=== PATIENT | female | born 1950 | race Caucasian/White ===

== ENCOUNTER → 2023-10-23 10:59 | Outpatient (REF) | payer OTHER, SELFPAY | LOC: DHCBC/DCA 10:59 | PROVIDERS: ATTENDING PHYSICIAN Internal Medicine Cardiovascular Disease; FAMILY PHYSICIAN Physician Assistant Medical | DX: R07.2 Precordial pain (principal); I10 Essential (primary) hypertension; E78.5 Hyperlipidemia, unspecified | CPT/HCPCS: 78452; 93017; A9500; J2785 ==

== ENCOUNTER → 2023-12-31 13:11 | Outpatient (REF) | payer OTHER, SELFPAY | LOC: WDC 13:11 | PROVIDERS: ATTENDING PHYSICIAN Physician Assistant Medical | DX: Z13.820 Encounter for screening for osteoporosis (principal); Z12.31 Encounter for screening mammogram for malignant neoplasm of breast | CPT/HCPCS: 77063; 77067 ==

== ENCOUNTER 2024-07-11 09:02 | Emergency (ER) | payer OTHER, MEDICARE, SELFPAY ==
[2024-07-11] VITALS (7 sets, daily range): BP systolic 116–135; BP diastolic 63–83; BMI 26.4
--- NOTE | 2024-07-11 09:35 | ED.GENMED ---
History of Present Illness
<STACIA Holliday Last Filed: 07/12/24 07:56>
General
Chief Complaint: Abdominal Pain
Source: patient
Exam Limitations: none
Time Seen by Provider: 07/11/24 09:13
Nursing documentation reviewed up to this point in time: agreed with
History of Present Illness
History of Present Illness:
73 y/o F with h/o HTN, hld
says her urine was a little cloudy but then last night she started with R sided flank/abd pain that radiates to back with nausea
pt says her pain has been waxing and waning, coming in waves;
she tried tylenol 975 mg at 6 am
no fever/chills, vomiting, diarrhea, constipation
never had a kidney stone before.
she has no chest pain, shortness of breath, leg weakness, numbness, diarrhea, ocnstipation, rash
no recent trauma
no h/o aortic disease
Past History
<STACIA Holliday Last Filed: 07/12/24 07:56>
Past History
ED Past Medical History: HTN and Hypercholesterolemia
ED Past Surgical History:
Social History
Tobacco: Non-smoker
Alcohol: None
Drug: None
Review of Systems
<STACIA Holliday Last Filed: 07/12/24 07:56>
Review of Systems
Allergies reviewed?: Yes
All Other Systems: Not applicable
Phy Exam
<STACIA Holliday Last Filed: 07/12/24 07:56>
Physical Exam
Physical Exam:
GENERAL: Alert, uncomfortable, moving around in the stretcher
Neck: supple
CARDIAC: Regular rate and rhythm .no edema,
LUNGS: Clear breath sounds bilaterally, no acute respiratory distress, no wheezes/rales/rhonchi
ABDOMEN: Soft, normal bowel sounds, nondistended, no abdominal tenderness, no flank tendenress, no cva tenderness; no rash no guarding, no rebound, neg tan's
hip: right mild discomfort with movement of legs; but able to fully flex
NEUROLOGICAL: Alert and oriented, no focal neuro deficits
SKIN: Warm and dry, skin intact.
PSYCH: Normal and appropriate interaction.
Course
<Dorothea Bullock PA-C - Last Filed: 07/12/24 07:56>
Orders/Labs/Results
Orders:
Orders
07/11/24 09:27
HYDROmorphone [Dilaudid] 0.5 mg IV NOW STA
Ondansetron Injectable [Zofran] 4 mg IV NOW STA
07/11/24 09:33
CT Abd/pel Without Iv Or Oral Urgent
Comment:
Reason For Exam: r flank pain, concern for kidney stone
07/11/24 09:38
Complete Blood Count/With Diff Urgent
Comprehensive Metabolic Panel Urgent
Lipase Urgent
Urinalysis Reflex To Culture Urgent
Date Specimen was Collected: 07/11/24
Time Specimen was Collected: 09:33
Urine Microscopic Reflex Cult Urgent
Urine Culture Urgent
BARBARA Source: U
Specimen Description:
Date Specimen was Collected: 07/11/24
Time Specimen was Collected: 09:33
07/11/24 09:43
HYDROmorphone [Dilaudid] 0.5 mg .ROUTE .STK-MED ONE
07/11/24 10:51
HYDROmorphone [Dilaudid] 0.5 mg IV NOW STA
Ketorolac [Toradol] 15 mg IV NOW STA
07/11/24 10:52
HYDROmorphone [Dilaudid] 0.5 mg .ROUTE .STK-MED ONE
07/11/24 11:31
CT Chest/abd/pelvis Angio W/wo Urgent
Comment:
Reason For Exam: severe R sided abd pain; no stone; eval aorta
07/11/24 13:01
Ketorolac [Toradol] 15 mg IV NOW STA
07/11/24 13:37
Cefdinir [Omnicef] 300 mg PO NOW STA
07/11/24 14:27
Ondansetron Injectable [Zofran] 4 mg IV NOW STA
Oxycodone/Acetaminophen [Percocet 5/325] 1 tablet PO NOW STA
Abnormal Lab Results
07/11/24
09:38
Abs Immat Gran (auto) 0.1 H 10^3/uL
(0-0.05)
Immature Gran % 0.9 H %
(0-0.5)
Lymphocytes % 17.8 L %
(20.5-51.1)
Potassium 3.4 L mmol/L
(3.5-5.1)
Carbon Dioxide 31 H mmol/L
(22-30)
Glucose 147 H mg/dl
(70-99)
Total Bilirubin 1.8 H mg/dl
(0.2-1.3)
Urine Ketones Trace A
(Negative)
Urine Bilirubin 1+ A
(Negative)
Leukocyte Esterase Rfl 1+ A
(Negative)
Urine RBC 3-6 A /HPF
(0-2)
Urine WBC (Reflex) 40-50 A /HPF
(0-5)
Urine Bacteria (Reflex) Moderate A
(Negative)
07/11/24 09:38
07/11/24 09:38
Vital Signs
Initial and Last Documented VS:
Initial Vital Signs
Pulse Resp BP Pulse Ox
63 18 128/83 98
07/11/24 09:07 07/11/24 09:07 07/11/24 09:07 07/11/24 09:07
Last Documented Vital Signs
Temp Pulse Resp BP Pulse Ox
98.5 F 61 16 125/70 96
07/11/24 10:50 07/11/24 15:00 07/11/24 15:00 07/11/24 15:00 07/11/24 15:00
<Juan uBck, DO - Last Filed: 07/12/24 13:03>
Orders/Labs/Results
Orders:
Orders
07/11/24 09:27
HYDROmorphone [Dilaudid] 0.5 mg IV NOW STA
Ondansetron Injectable [Zofran] 4 mg IV NOW STA
07/11/24 09:33
CT Abd/pel Without Iv Or Oral Urgent
Comment:
Reason For Exam: r flank pain, concern for kidney stone
07/11/24 09:38
Complete Blood Count/With Diff Urgent
Comprehensive Metabolic Panel Urgent
Lipase Urgent
Urinalysis Reflex To Culture Urgent
Date Specimen was Collected: 07/11/24
Time Specimen was Collected: 09:33
Urine Microscopic Reflex Cult Urgent
Urine Culture Urgent
BARBARA Source: U
Specimen Description:
Date Specimen was Collected: 07/11/24
Time Specimen was Collected: 09:33
07/11/24 09:43
HYDROmorphone [Dilaudid] 0.5 mg .ROUTE .STK-MED ONE
07/11/24 10:51
HYDROmorphone [Dilaudid] 0.5 mg IV NOW STA
Ketorolac [Toradol] 15 mg IV NOW STA
07/11/24 10:52
HYDROmorphone [Dilaudid] 0.5 mg .ROUTE .STK-MED ONE
07/11/24 11:31
CT Chest/abd/pelvis Angio W/wo Urgent
Comment:
Reason For Exam: severe R sided abd pain; no stone; eval aorta
07/11/24 13:01
Ketorolac [Toradol] 15 mg IV NOW STA
07/11/24 13:37
Cefdinir [Omnicef] 300 mg PO NOW STA
07/11/24 14:27
Ondansetron Injectable [Zofran] 4 mg IV NOW STA
Oxycodone/Acetaminophen [Percocet 5/325] 1 tablet PO NOW STA
Abnormal Lab Results
07/11/24
09:38
Abs Immat Gran (auto) 0.1 H 10^3/uL
(0-0.05)
Immature Gran % 0.9 H %
(0-0.5)
Lymphocytes % 17.8 L %
(20.5-51.1)
Potassium 3.4 L mmol/L
(3.5-5.1)
Carbon Dioxide 31 H mmol/L
(22-30)
Glucose 147 H mg/dl
(70-99)
Total Bilirubin 1.8 H mg/dl
(0.2-1.3)
Urine Ketones Trace A
(Negative)
Urine Bilirubin 1+ A
(Negative)
Leukocyte Esterase Rfl 1+ A
(Negative)
Urine RBC 3-6 A /HPF
(0-2)
Urine WBC (Reflex) 40-50 A /HPF
(0-5)
Urine Bacteria (Reflex) Moderate A
(Negative)
07/11/24 09:38
07/11/24 09:38
Vital Signs
Initial and Last Documented VS:
Initial Vital Signs
Pulse Resp BP Pulse Ox
63 18 128/83 98
07/11/24 09:07 07/11/24 09:07 07/11/24 09:07 07/11/24 09:07
Last Documented Vital Signs
Temp Pulse Resp BP Pulse Ox
98.5 F 61 16 125/70 96
07/11/24 10:50 07/11/24 15:00 07/11/24 15:00 07/11/24 15:00 07/11/24 15:00
<Dorothea Bullock PA-C - Last Filed: 07/12/24 07:56>
MDM/Problems Addressed
Differential Diagnosis Includes:
Kidney stone, appendicitis, diverticulitis, less likely dissection
MDM/Problems Addressed:
73-year-old female with a history of hypertension presents for right sided lower abdominal pain radiating to her back since early this morning. Patient says she has had a little bit of cloudiness to her urine a few days ago but no dysuria or
frequency. She started having nausea and this right lower abdominal pain last night and could not get comfortable. She did not think she had a fever but took some Tylenol for pain at 6 AM without relief. Patient says she cannot get comfortable.
She is not having any leg weakness, chest pain, shortness of breath, fever or chills.
On exam she is not tender but very uncomfortable
seemed to be fairly consistent with kidney stone
however, ct ap was negative
pt contineud to have pain slightly out of proportion to exam; she does have some pain with moement but seems to be moving around and can't get comfortable
urine is contaminated but with her cloudiness, i suspect infection
d/w dr. latham, pt required multiple doses dilaudid and thus we decided to send pt back to r/o dissection
her CTA was neg
she was made aware of pulm nodules, emphysem and other incidentals
1310
she is much more comfortable now but seems to have pain more with hip movement
perhaps MSK
will give toradol
anticipiate d/c
1430 - pt reassessed appears uncomfortable; having right sided back/hip pain and wrapping around to right abdomen/hip
worse with movement
??msk vs early shingles
at this point, it is unclear what the cause is
plan is to try oral dose of pain meds; if pt is not more comfortable, will obs for intractable pain
1530 - pt feels much better pain 09/12
will give short course pain meds; cover with abx
<Dorothea Bullock PA-C - Last Filed: 07/12/24 07:56>
*Critical Care Note
Total Time (30-74mins, 75-104mins- exclusive of procedures): Not Applicable
ED Attending Note
<Dorothea Bullock PA-C - Last Filed: 07/12/24 07:56>
-
Portions of this chart may have been created with voice recognition software.� Occasional wrong word or��sound alike� substitutions may have occurred due to the inherent limitations of voice recognition software.
<Juan Buck DO - Last Filed: 07/12/24 13:03>
ED Attending Note
Patient seen and examined by attending physician: Yes
ED Attending Note:
I have reviewed and agree with history and treatment plan by Dorothea Bullock PA-C. Eye exam revealed 73-year-old female with mild right CVA tenderness, no distress. Suspect viral cause versus musculoskeletal. No signs of aortic dissection or
pyelonephritis. Stable for discharge. Treat UTI.
Discharge Plan
Departure
Patient Disposition: Home (Routine Discharge)
Date of Disposition: 07/11/24
Time of Disposition: 15:27
Patient with high blood pressure during this ER visit?: No
Condition: Fair
Covid-19: Not Applicable
Discharge Problem:
UTI (urinary tract infection), Back pain
Instructions: Urinary tract infection - Discharge instructions, Back Pain, Abdominal Pain
Prescriptions:
New
cefdinir 300 mg capsule
300 mg PO BID Qty: 14 0RF
ondansetron 4 mg tablet,disintegrating
4 mg PO Q8H PRN (Reason: nausea and vomiting) 1 Days Qty: 3 0RF
oxycodone-acetaminophen [Percocet] 5-325 mg tablet
1 tab PO Q6HPRN PRN (Reason: pain) Qty: 4 0RF
Referrals:
Ana Tan PA-C [Family Provider] - Follow up in 2-3 days
Activity Restrictions/Additional Instructions:
YOUR CAT SCANS SHOWED NO SIGNS OF SERIOUS CAUSE OF YOUR PAIN
YOU DO HAVE SOME INCIDENTAL FINDINGS OF PULMONARY NODULES AND EMPHYSEMA
YOUR APPENDIX LOOKS NORMAL, THERE IS NO SIGN OF A KIDNEY STONE
YOU DO HAVE SOME BACTERIA IN YOUR URINE
TAKE CEFDINIR TWICE A DAY FOR 7 DAYS
DRINK FLUIDS
TYLENOL/MOTRIN FOR PAIN NEEDED
FOLLOW UP WITH YOUR FAMILY DOCTOR THIS WEEK
RETURN FOR: SEVERE/WORSENING PAIN, FEVER, VOMITING, SEVERE PAIN, OR ANY CONCERNS.
YOU CAN TRY PERCOCET EVERY 8 HOURS ASNEEDED FOR SEVERE PAIN (THIS IS A NARCOTIC)
ZOFRAN NEEDED EVERY 8HOURS FOR NAUSEA/VOMITING.
Interventions
Interventions:
*Risk Screen - Suicide Last Done: 07/11/24 09:07
*General Assessment Last Done: 07/11/24 09:07
*Neglect/Abuse Screening Last Done: 07/11/24 09:52
ED- Fall Risk Assessment Last Done: 07/11/24 09:52
*ED COVID-19 Vaccine History Last Done: 07/11/24 09:07
*Nursing Disposition Last Done: 07/11/24 15:44
QY-Emthfb-Jhogpsycjd Assessment Last Done: 07/11/24 09:52
Discharge Date and Time
Discharge Date/Time: 07/11/24 15:45
Print Language: MACEDONIAN
[2024-07-11] MEDS: DILAUDID 0.5 MG IV ×2 (09:38→10:50)
[2024-07-11] MEDS: ZOFRAN 4 MG IV ×2 (09:38→14:40)
[2024-07-11 09:53] LABS: Urine Albumin Trace (Neg - Trace); Urine Bilirubin 1+ (Negative); Urine Character Clear (Clear); Urine Color Yellow; Urine Glucose Negative (Negative); Urine Ketone Trace (Negative); Urine Leukocyte 1+ (Negative); Urine Nitrite Negative (Negative); Urine Occult Blood Negative (Negative); Urine Urobilinogen Negative (Neg - 1+)
[2024-07-11 09:55] LABS: % Basophils 0.5 % (0-2); % Eosinophils 0.9 % (0-6); % Immature Granulocytes 0.9 % (0-0.5); % Lymphocytes 17.8 % (20.5-51.1); % Neutrophils 74.9 % (42.2-75.2); Absolute Eosinophils 0.1 10^3/uL (0-0.7); Absolute Immature Granulocytes 0.1 10^3/uL (0-0.05); Absolute Lymphocytes 1.4 10^3/uL (1.2-3.4); Absolute Monocytes 0.4 10^3/uL (0.1-0.6); Absolute Neutrophils 5.7 10^3/uL (1.4-6.5); Hematocrit 42.9 % (37.0-47.0); Hemoglobin 14.5 g/dL (12.0-16.0); Mean Corp Hgb Conc. 33.8 g/dL (33.0-37.0); Mean Corpuscular Hgb 28.9 pg (27.0-31.0); Mean Corpuscular Volume 85.5 fL (81.0-99.0); Mean Platelet Volume 10.3 fL (7.4-10.4); Nucleated Red Blood Cells % 0 %; Platelet Count 228 10^3/uL (130-400); Red Blood Cell Count 5.02 10^6/uL (4.20-5.40); Red Cell Dist. Width 13.2 % (11.5-14.5); White Blood Cell Count 7.6 10^3/uL (4.8-10.8)
[2024-07-11 10:03] LABS: ALT (SGPT) 25 U/L (0-35); AST (SGOT) 29 U/L (14-36); Albumin 4.8 g/dl (3.5-5.0); Alkaline Phosphatase 92 U/L (38-126); Blood Urea Nitrogen 17 mg/dl (7-17); Calcium 9.4 mg/dl (8.4-10.2); Carbon Dioxide 31 mmol/L (22-30); Chloride 98 mmol/L (98-107); Estimated Creatinine Clearance 63 ml/min; Glucose 147 mg/dl (70-99); Lipase 97 U/L (23-300); Potassium 3.4 mmol/L (3.5-5.1); Sodium 141 mmol/L (135-145); Total Bilirubin 1.8 mg/dl (0.2-1.3); Total Protein 7.9 g/dl (6.3-8.2); eGFR > 60.00
[2024-07-11 10:33] LABS: Urine Squamous Cell 16-20 /LPF (Few)
[2024-07-11 10:34] LABS: Urine Mucus Moderate
[2024-07-11 10:36] LABS: Urine White Cell 40-50 /HPF (0-5)
[2024-07-11 10:37] LABS: Urine Bacteria Moderate (Negative)
--- NOTE | 2024-07-11 12:51 | EDRN ---
Pt states pain is intermittent at 7/10 not constant.
[2024-07-11] MEDS: TORADOL 15 MG IV (13:31)
--- NOTE | 2024-07-11 13:35 | EDRN ---
called pharmacy to send omnicef at this time. Pt was just OOB to BR. Dr. Buck in room w/ pt.
--- NOTE | 2024-07-11 14:23 | EDRN ---
Shayan OAKLEY in room w/ pt at this time.
[2024-07-11] MEDS: OMNICEF 300 MG PO (14:34)
[2024-07-11] MEDS: PERCOCET 5/325 1 TABLET PO (14:39)
--- NOTE | 2024-07-11 15:25 | EDRN ---
Shayan OAKLEY in room w/ pt at [facility] time.
== END 2024-07-11 15:45 | disposition home or self-care (01) ==
LOC: EMR 09:02
PROVIDERS: Physician Assistant; EMERGENCY PHYSICIAN Emergency Medicine; FAMILY PHYSICIAN Physician Assistant Medical
DX: N39.0 Urinary tract infection, site not specified (principal); M54.9 Dorsalgia, unspecified; E78.00 Pure hypercholesterolemia, unspecified; I10 Essential (primary) hypertension; R91.8 Other nonspecific abnormal finding of lung field
CPT/HCPCS: 96374; 96375; 96376; 99284; 71275; 74174; 74176; 80053; 81003; 81015; 83690; 85025; 87086; Q9967

== ENCOUNTER 2024-11-22 05:23 | Emergency (ER) | payer OTHER, SELFPAY ==
[2024-11-22] VITALS (9 sets, daily range): BP systolic 92–166; BP diastolic 67–94; BMI 27.9
--- NOTE | 2024-11-22 06:05 | ED.GENMED ---
History of Present Illness
General
Chief Complaint: Heart Rate Problem
Source: patient
Exam Limitations: none
Time Seen by Provider: 11/22/24 05:57
History of Present Illness
History of Present Illness:
74yoF with history of hypertension and hyperlipidemia presenting for evaluation of palpitations. Patient woke up from sleep around 3:30 AM this morning. She reports feeling short of breath and a fluttering in her chest. She decided to check her
blood pressure and her heart rate was elevated at 158. She went downstairs to watch some TV thinking her symptoms would subside. Her heart rate was still elevated on recheck which prompted her to ED. She reports lightheadedness but denies any
syncope. Patient is currently feeling improved although continues to have a mild chest pressure. She states it feels like she just smoked a pack of cigarettes. 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
shoveling snow. She is not currently on anticoagulation. She does admit to doing a lot of yard work yesterday and is unsure if this is related. Her current medications include HCTZ, metoprolol, and a statin. She had a nuclear stress test in
October 2023 which was negative for ischemia. EF was >70% at that time.
Past History
Past History
ED Past Medical History: HTN and Hypercholesterolemia
ED Past Surgical History:
Social History
Tobacco: Non-smoker
Alcohol: None
Drug: None
Phy Exam
General Physical Exam
General Presentation: well appearing and no apparent distress
General age: appears stated age
General Skin: warm and dry
General Habitus: normal
General Mental: alert
ENT Exam
ENT Exam: normocephalic
Cardiovascular Exam
Cardiovascular Exam: regular rate/rhythm, no edema and no murmur
Pulmonary Exam
Pulmonary Exam: lungs clear, no respiratory distress, no rales, no crackles, no rhonchi and no wheezing
Neurological Exam
Neurological Exam: alert
Serena Coma Scale
Eye Opening: Spontaneous
Verbal Response: Oriented
Motor Response: Obeys Commands
GCS Total Score: 15
Skin Exam
Skin Exam: normal color and warm/dry
Psychiatric Exam
Psychiatric Exam: normal mood/affect
Scores
[id number] Score for Afib Stroke Risk
Age in Years (65=0, 65-74=1, >/=75=2): > or = 75
Sex (Female=+1): Female
Congestive Heart Failure History (Yes=+1): No
Hypertension History (Yes=+1): Yes
Stroke/TIA/Thromboembolism History (Yes=+2): No
Vascular Disease History (Yes=+1): No
Diabetes Mellitus (Yes=+1): No
Score: 4
Anticoagulation Recommendations: Recommend anticoagulation (as validated in nonvalvular fib)
Course
Orders/Labs/Results
Orders:
Orders
11/22/24 05:28
ECG [Electrocardiogram (*1)] Urgent
Reason for Study: Tachycardia
11/22/24 05:29
EKG- Treatment ONCE
11/22/24 05:56
Complete Blood Count/With Diff Urgent
Comprehensive Metabolic Panel Urgent
Magnesium Urgent
NT-proBNP Urgent
TSH Reflex To Free T4 Urgent
Troponin I Urgent
11/22/24 06:04
Electrocardiogram (*1) Urgent
Reason for Study: Palpitations
Cardiac Monitoring- Treatment ONCE
EKG- Treatment ONCE
CR Chest - 2 Views Urgent
Comment:
Reason For Exam: SOB
11/22/24 07:04
0.9% Sodium Chloride 500 ml [Nss] 500 ml IV BOLUS
11/22/24 07:12
Apixaban [Eliquis] 5 mg PO NOW STA
Abnormal Lab Results
11/22/24
05:56
MCHC 32.8 L g/dL
(33.0-37.0)
Absolute Monos (auto) 0.7 H 10^3/uL
(0.1-0.6)
Immature Gran % 0.6 H %
(0-0.5)
Monocytes % 9.8 H %
(1.7-9.3)
Glucose 137 H mg/dl
(70-99)
11/22/24 05:56
11/22/24 05:56
Vital Signs
Initial and Last Documented VS:
Initial Vital Signs
Temp Pulse Resp BP Pulse Ox
97.8 F 168 24 166/94 97
11/22/24 05:26 11/22/24 05:26 11/22/24 05:26 11/22/24 05:26 11/22/24 05:26
Last Documented Vital Signs
Temp Pulse Resp BP Pulse Ox
97.8 F 72 13 103/67 99
11/22/24 05:26 11/22/24 09:00 11/22/24 09:00 11/22/24 08:24 11/22/24 09:00
MDM/Problems Addressed
Differential Diagnosis Includes:
74yoF here with SOB and palpitations that woke her up from sleep this morning. Remote history of aflutter. HR 168 on arrival and triage EKG shows afib with RVR with rate related ST changes. On initial exam, she is in normal sinus rhythm. She is
currently feeling better but does c/o a chest pressure. Differential diagnosis includes but is not limited to: arrhythmia, electrolyte abnormality, thyroid dysfunction
Initial ED plan: Cardiac labs and TSH already sent by nursing staff. Will add magnesium, CXR, and repeat EKG.
*EKG
Interpreted by ED Provider?: Yes
EKG Intrepretation Date: 11/22/24
Heart Rate: 162
Rate: tachycardiac
Rhythm: a-fib
Whipple: normal axis
Interval: normal interval
QRS Pattern: normal QRS
Ischemia: non-specific ST changes
*Critical Care Note
Total Time (30-74mins, 75-104mins- exclusive of procedures): Not Applicable
Update Note
Update Note:
Labs overall unremarkable including normal electrolytes and TSH. Troponin within normal limits. Chest x-ray is clear. Patient observed for an additional 2+ hours and she remains in normal sinus rhythm. Patient is asymptomatic on reassessment.
No indication for hospitalization. [id number] score is 4. Patient was initiated on Eliquis and coupon provided. She was advised to call her zipper setter lockstitch today to schedule a close follow-up appointment. Strict ED return precautions reviewed.
Patient in agreement with plan and was discharged in stable condition.
ED Attending Note
-
Portions of this chart may have been created with voice recognition software.� Occasional wrong word or��sound alike� substitutions may have occurred due to the inherent limitations of voice recognition software.
Discharge Plan
Departure
Patient Disposition: Home (Routine Discharge)
Date of Disposition: 11/22/24
Time of Disposition: 08:17
Patient with high blood pressure during this ER visit?: No
Discharge Problem:
Atrial fibrillation with RVR
Instructions: Atrial Fibrillation (DC), Apixaban
Prescriptions:
New
Eliquis 5 mg tablet
5 mg PO BID Qty: 60 0RF
No Action
ondansetron 4 mg tablet,disintegrating
4 mg PO Q8H PRN (Reason: nausea and vomiting) 1 Days Qty: 3 0RF
Referrals:
Ana Tan PA-C [Family Provider] -
Activity Restrictions/Additional Instructions:
Take Eliquis as prescribed. Continue taking metoprolol.
Please call today to schedule a follow-up with your zipper setter lockstitch. Return to the ER with any new or worsening symptoms.
Interventions
Interventions:
*Risk Screen - Suicide Last Done: 11/22/24 05:48
*General Assessment Last Done: 11/22/24 05:48
*Neglect/Abuse Screening Last Done: 11/22/24 05:48
*ED- Fall Risk Assessment Last Done: 11/22/24 05:48
*ED COVID-19 Vaccine History Last Done: 11/22/24 05:48
*Nursing Disposition Last Done: 11/22/24 09:15
ED- Cardiac Assessment Last Done: 11/22/24 07:20
ED- Pulmonary Assessment Last Done: 11/22/24 07:20
Discharge Date and Time
Discharge Date/Time: 11/22/24 09:17
Print Language: UPPER SORBIAN
[2024-11-22 06:11] LABS: % Basophils 0.9 % (0-2); % Immature Granulocytes 0.6 % (0-0.5); % Lymphocytes 33.8 % (20.5-51.1); % Monocytes 9.8 % (1.7-9.3); % Neutrophils 51.9 % (42.2-75.2); Absolute Basophils 0.1 10^3/uL (0-0.2); Absolute Eosinophils 0.2 10^3/uL (0-0.7); Absolute Lymphocytes 2.2 10^3/uL (1.2-3.4); Absolute Monocytes 0.7 10^3/uL (0.1-0.6); Absolute Neutrophils 3.4 10^3/uL (1.4-6.5); Hematocrit 43.9 % (37.0-47.0); Hemoglobin 14.4 g/dL (12.0-16.0); Mean Corp Hgb Conc. 32.8 g/dL (33.0-37.0); Mean Corpuscular Volume 85.4 fL (81.0-99.0); Nucleated Red Blood Cells % 0 %; Platelet Count 241 10^3/uL (130-400); Red Blood Cell Count 5.14 10^6/uL (4.20-5.40); Red Cell Dist. Width 13.2 % (11.5-14.5); White Blood Cell Count 6.6 10^3/uL (4.8-10.8)
[2024-11-22 06:20] LABS: ALT (SGPT) 24 U/L (0-35); AST (SGOT) 31 U/L (14-36); Albumin 4.3 g/dl (3.5-5.0); Alkaline Phosphatase 110 U/L (38-126); Blood Urea Nitrogen 16 mg/dl (7-17); Carbon Dioxide 28 mmol/L (22-30); Chloride 103 mmol/L (98-107); Estimated Creatinine Clearance 71 ml/min; Glucose 137 mg/dl (70-99); Magnesium 1.8 mg/dl (1.6-2.3); Sodium 144 mmol/L (135-145); Total Protein 7.7 g/dl (6.3-8.2); eGFR > 60.00
[2024-11-22 06:29] LABS: NT-proBNP 458 pg/ml; Troponin I 0.033 ng/ml
[2024-11-22 06:51] LABS: TSH Reflex To Free T4 3.14 uIU/ml (0.47-4.68)
[2024-11-22] MEDS: NSS 500 IV (07:27)
[2024-11-22] MEDS: ELIQUIS 5 MG PO (07:27)
== END 2024-11-22 09:17 | disposition home or self-care (01) ==
LOC: EMR 05:23
PROVIDERS: Emergency Medicine; EMERGENCY PHYSICIAN Emergency Medicine; FAMILY PHYSICIAN Physician Assistant Medical
DX: I48.91 Unspecified atrial fibrillation (principal); I10 Essential (primary) hypertension; E78.00 Pure hypercholesterolemia, unspecified; Z79.899 Other long term (current) drug therapy
CPT/HCPCS: 99285; 96360; 71046; 80053; 83735; 83880; 84443; 84484; 85025; 93005

== ENCOUNTER → 2024-12-08 13:49 | Outpatient (REF) | payer OTHER, SELFPAY | LOC: RCS 13:49 | PROVIDERS: ATTENDING PHYSICIAN Nurse Practitioner Gerontology; FAMILY PHYSICIAN Physician Assistant Medical | DX: I48.0 Paroxysmal atrial fibrillation (principal) | CPT/HCPCS: 93306 ==

== ENCOUNTER → 2025-02-01 11:34 | Outpatient (REF) | payer OTHER, SELFPAY | LOC: WDC 11:34 | PROVIDERS: ATTENDING PHYSICIAN Physician Assistant Medical | DX: Z12.31 Encounter for screening mammogram for malignant neoplasm of breast (principal) | CPT/HCPCS: 77063; 77067 ==

== ENCOUNTER 2025-05-09 18:51 | Emergency (ER) | payer OTHER, SELFPAY ==
[2025-05-09 18:58] VITALS: BP 124/90
[2025-05-09 19:13] VITALS: BP 133/119
[2025-05-09 19:14] VITALS: BMI 27.4
[2025-05-09 19:19] LABS: Hematocrit 43.5 % (37.0-47.0); Hemoglobin 14.6 g/dL (12.0-16.0); Mean Corp Hgb Conc. 33.6 g/dL (33.0-37.0); Mean Corpuscular Volume 84.0 fL (81.0-99.0); Nucleated Red Blood Cells % 0 %; Platelet Count 231 10^3/uL (130-400); Red Cell Dist. Width 13.0 % (11.5-14.5)
--- NOTE | 2025-05-09 19:19 | ED.GENMED ---
History of Present Illness
General
Chief Complaint: Heart Rate Problem
Time Seen by Provider: 05/09/25 19:03
History of Present Illness
History of Present Illness:
Patient presents to the emergency department with palpitations. She has a history of paroxysmal atrial fibrillation and is on Eliquis for this. She reports tonight at 5 PM she felt himself going to atrial fibrillation. This is associated with
anxiety and palpitations. She feels some chest pressure. Denies leg swelling. Denies shortness of breath.
Past History
Past History
ED Past Medical History: HTN and Hypercholesterolemia
ED Past Surgical History:
Social History
Tobacco: Non-smoker
Alcohol: None
Drug: None
Phy Exam
Physical Exam
Physical Exam:
GENERAL APPEARANCE: NAD, well developed/ well nourished
EYES lids/conjunctiva normal
EARS/NOSE/THROAT Mucous membranes moist, uvula midline without oral pharyngeal erythema, exudate or swelling
HEAD/NECK normocephalic atraumatic, neck is supple.
RESPIRATORY respiratory effort normal, speaks in full sentences, no accessory muscle use. Lungs clear to auscultation without rhonchi, wheezes, rales
CARDIAC irregularly irregular tachycardia
ABDOMINAL Soft, ND/NT.
MUSCLES/EXTREMITIES No abnormal range of motion, no swelling.
SKIN Warm, pink and dry. No rashes
NEUROLOGICAL Speech is clear and appropriate. Normal level of consciousness. 5/5 strength in all extremities.
PSYCH Normal mood and affect. Judgement/competence is appropriate
Course
Orders/Labs/Results
Orders:
Orders
05/09/25 18:52
ECG [Electrocardiogram (*1)] Urgent
Reason for Study: Tachycardia
EKG- Treatment ONCE
05/09/25 19:06
CR Chest - 2 Views Urgent
Comment:
Reason For Exam: sob
05/09/25 19:11
Complete Blood Count/With Diff Urgent
Comprehensive Metabolic Panel Urgent
Magnesium Urgent
PTT Urgent
Prothrombin Time Urgent
Troponin I Urgent
05/09/25 19:21
0.9% Sodium Chloride 1000 ml [Nss] 1,000 ml IV BOLUS
05/09/25 19:42
Etomidate [Amidate 20 mg] 10 mg IV NOW STA
Fentanyl Citrate/Pf [Sublimaze] 50 mcg IV NOW STA
Potassium Chloride [KCl] 40 meq PO NOW STA
05/09/25 20:00
Electrocardiogram (*1) Urgent
Reason for Study: Hypertension, Benign
EKG- Treatment ONCE
Abnormal Lab Results
05/09/25
19:11
Abs Immat Gran (auto) 0.1 H 10^3/uL
(0-0.05)
Absolute Monos (auto) 0.7 H 10^3/uL
(0.1-0.6)
Immature Gran % 0.7 H %
(0-0.5)
Monocytes % 9.8 H %
(1.7-9.3)
PT 15.9 H Sec
(11.4-14.6)
APTT 40.1 H Sec
(23.4-35.0)
Potassium 3.3 L mmol/L
(3.5-5.1)
Glucose 103 H mg/dl
(70-99)
Total Bilirubin 1.8 H mg/dl
(0.2-1.3)
05/09/25 19:11
05/09/25 19:11
Vital Signs
Initial and Last Documented VS:
Initial Vital Signs
Temp Pulse Resp BP Pulse Ox
97.5 F 146 18 124/90 95
05/09/25 18:58 05/09/25 18:58 05/09/25 18:58 05/09/25 18:58 05/09/25 18:58
Last Documented Vital Signs
Temp Pulse Resp BP Pulse Ox
97.5 F 70 16 108/72 98
05/09/25 18:58 05/09/25 21:15 05/09/25 21:15 05/09/25 21:05 05/09/25 21:15
*Pulse Oximetry
SaO2: 98
Oxygen Mode of Delivery: Room air
Patient hypoxic: no
*Critical Care Note
Total Time (30-74mins, 75-104mins- exclusive of procedures): Not Applicable
ED Attending Note
ED Attending Note
ED Attending Note:
Patient presents with paroxysmal episode of atrial fibrillation with rapid ventricular response. She is otherwise hemodynamically stable but heart rate is in the 150s. Discussed case with on-call talent management specialist Dr. Kevin who favors cardioversion
in the emergency department which patient is amenable to.
PAtient spontaneously converted to normal sinus rhythm. She is asymptomatic. Discussed with cardiology who agrees with discharge and follow up in the office.
-
Portions of this chart may have been created with voice recognition software.� Occasional wrong word or��sound alike� substitutions may have occurred due to the inherent limitations of voice recognition software.
Discharge Plan
Departure
Patient Disposition: Home (Routine Discharge)
Date of Disposition: 05/09/25
Time of Disposition: 21:16
Patient with high blood pressure during this ER visit?: No
Discharge Problem:
Atrial fibrillation
Instructions: Atrial Fibrillation (DC)
Prescriptions:
No Action
Eliquis 5 mg tablet
5 mg PO BID Qty: 60 0RF
metoprolol succinate 50 mg Tablet Extended Release 24 Hr
50 mg PO DAILY
hydrochlorothiazide 25 mg Tablet
25 mg PO DAILY
rosuvastatin 5 mg Tablet
5 mg PO DAILY
Referrals:
Ana Tan PA-C [Family Provider, Family Practice]
Interventions
Interventions:
*Risk Screen - Suicide Last Done: 05/09/25 18:58
*General Assessment Last Done: 05/09/25 18:58
*Neglect/Abuse Screening Last Done: 05/09/25 18:58
*ED- Fall Risk Assessment Last Done: 05/09/25 19:12
*ED COVID-19 Vaccine History Last Done: 05/09/25 18:58
*ED Influenza Vaccine History Last Done: 05/09/25 18:58
*Nursing Disposition Last Done: 05/09/25 21:24
ED- Cardiac Assessment Last Done: 05/09/25 19:12
ED- Pulmonary Assessment Last Done: 05/09/25 19:12
Discharge Date and Time
Discharge Date/Time: 05/09/25 21:25
Print Language: SURINAMESE
[2025-05-09 19:28] LABS: INR 1.24; PT 15.9 Sec (11.4-14.6)
[2025-05-09 19:29] LABS: APTT 40.1 Sec (23.4-35.0)
[2025-05-09 19:33] LABS: ALT (SGPT) 22 U/L (0-35); AST (SGOT) 28 U/L (14-36); Albumin 4.6 g/dl (3.5-5.0); Alkaline Phosphatase 78 U/L (38-126); Blood Urea Nitrogen 16 mg/dl (7-17); Calcium 9.3 mg/dl (8.4-10.2); Carbon Dioxide 27 mmol/L (22-30); Chloride 101 mmol/L (98-107); Estimated Creatinine Clearance 73 ml/min; Glucose 103 mg/dl (70-99); Magnesium 1.6 mg/dl (1.6-2.3); Potassium 3.3 mmol/L (3.5-5.1); Sodium 136 mmol/L (135-145); Total Protein 8.0 g/dl (6.3-8.2); eGFR > 60.00
[2025-05-09 19:41] LABS: Troponin I < 0.012 ng/ml
[2025-05-09] MEDS: KCL 40 MEQ PO (19:54)
[2025-05-09 20:00] VITALS: BP 108/81
[2025-05-09 21:05] VITALS: BP 108/72
== END 2025-05-09 21:25 | disposition home or self-care (01) ==
LOC: EMR 18:51
PROVIDERS: EMERGENCY PHYSICIAN Emergency Medicine; FAMILY PHYSICIAN Physician Assistant Medical
DX: I48.0 Paroxysmal atrial fibrillation (principal); I10 Essential (primary) hypertension; E78.00 Pure hypercholesterolemia, unspecified; Z79.01 Long term (current) use of anticoagulants
CPT/HCPCS: 99284; 71046; 80053; 83735; 84484; 85025; 85610; 85730; 93005